=== PATIENT | male | born 2000 | race Two or more races ===

== ENCOUNTER 2018-05-20 10:46 | Emergency (ER) | payer BC ==
[~2018-05-20] VITALS: Ht 177.8 cm; Wt 74.8 kg
[2018-05-20] MEDS ORDERED: DIPHTH,PERTUSS(ACELL),TET TOX 0.5 ML DISP.SYRIN. VAX IM ONE (11:00)
[2018-05-20] MEDS ORDERED: LIDOCAINE 1% PF 30 ML VIAL. INJ ONE (11:00)
[2018-05-20 12:08] VITALS: BP 143/66
--- NOTE | 2018-05-20 12:21 | PHYS DOC ---
Past Medical History Past Medical History: No Pertinent History Alcohol Use: None Drug Use: Marijuana Adult General Chief Complaint Chief Complaint: LACERATION/AVULSION HPI HPI Patient is a 18 year old male who presents with forehead laceration, patient states he was working on a drill above his head when the drill fell and hit him on the forehead. Patient denies any loss of consciousness. Review of Systems Review of Systems Constitutional: Denies fever or chills [] Eyes: Denies change in visual acuity, redness, or eye pain [] HENT: Denies nasal congestion or sore throat [] Respiratory: Denies cough or shortness of breath [] Cardiovascular: No additional information not addressed in HPI [] GI: Denies abdominal pain, nausea, vomiting, bloody stools or diarrhea [] : Denies dysuria or hematuria [] Musculoskeletal: Denies back pain or joint pain [] Integument: forehead laceration Neurologic: Denies headache, focal weakness or sensory changes [] All other systems were reviewed and found to be within normal limits, except as documented in this note. Current Medications Current Medications Current Medications Medications (Trade) Dose Ordered Sig/Tio Start Time Stop Time Status Last Admin Dose Admin Diphtheria/ Tetanus/Acell Pertussis (Boostrix) 0.5 ml ONCE ONCE 05/20/18 11:00 05/20/18 11:13 DC 05/20/18 11:27 0.5 ML Lidocaine HCl (Xylocaine 1% Pf 30ml Vial) 30 ml 1X ONCE 05/20/18 11:00 05/20/18 11:13 DC 05/20/18 11:32 30 ML Allergies Allergies Allergies Coded Allergies Type Severity Reaction Last Updated Verified lentils Allergy Intermediate 05/20/18 Yes nut - unspecified Allergy Intermediate 05/20/18 Yes Physical Exam Physical Exam Constitutional: Well developed, well nourished, no acute distress, non-toxic appearance. [] HENT: Normocephalic, atraumatic, bilateral external ears normal, oropharynx moist, no oral exudates, nose normal. [] Eyes: PERRLA, EOMI, conjunctiva normal, no discharge. [] Neck: Normal range of motion, no tenderness, supple, no stridor. [] Cardiovascular:Heart rate regular rhythm, no murmur [] Lungs & Thorax: Bilateral breath sounds clear to auscultation [] Abdomen: Bowel sounds normal, soft, no tenderness, no masses, no pulsatile masses. [] Skin: Warm, dry, no erythema, forehead with a vertical laceration approximately 4 cm long. Back: No tenderness, no CVA tenderness. [] Extremities: No tenderness, no cyanosis, no clubbing, ROM intact, no edema. [] Neurologic: Alert and oriented X 3, normal motor function, normal sensory function, no focal deficits noted. Cranial nerves II through XII intact Psychologic: Affect normal, judgement normal, mood normal. [] Current Patient Data Vital Signs Vital Signs Date Time Temp Pulse Resp B/P (MAP) Pulse Ox O2 Delivery O2 Flow Rate FiO2 05/20/18 12:08 98.0 68 18 143/66 (91) 99 Room Air 98.0 EKG EKG [] Radiology/Procedures Radiology/Procedures Laceration/Wound Repair Laceration/Wound Repair : [] Wound Location: Fore head Wound's Depth, Shape: vertical Wound Length (cm): approx. 4 cm Wound Explored: clean Irrigated w/ Saline (ccs): 20 Betadine Prep?: Y Anesthesia: 1% of lidocaine Volume Anesthetic (ccs): Approximately 5 mL Wound Repaired With: Dissolvable gut/size 6 Number of Sutures: 10 interrupted sutures Progress :[][] Course & Med Decision Making Course & Med Decision Making Pertinent Labs and Imaging studies reviewed. (See chart for details) Patient has forehead laceration that was closed with 10 interrupted sutures as noted in procedures. Wound care instructions and return precautions provided. Tetanus updated. Staff Physician Addendum: I was working in the ER during the course of this patient's visit. I was available for consultation as needed, but I was not directly involved in the care of this patient. Dragon Disclaimer Dragon Disclaimer This electronic medical record was generated, in whole or in part, using a voice recognition dictation system. Departure Departure Impression: Primary Impression: Forehead laceration Disposition: 01 HOME, SELF-CARE Condition: STABLE Referrals: UNKNOWN PCP NAME (PCP) Follow-up with your doctor in 1-2 weeks as needed Patient Instructions: Facial Laceration, [id number] Additional Instructions: You have a laceration to your forehead that was closed with dissolvable sutures , they will disappear in the next 1-2 weeks. You can shower and wash your face. Apply Neosporin to the area twice a day. Monitor the area for any signs of infection including increased redness warmth or yellow drainage from the area and return to the ED if they occur. Follow-up with your doctor in 1-2 weeks as needed. Problem Qualifiers Primary Impression: Forehead laceration Encounter type: initial encounter Qualified Codes: S01.81XA - Laceration without foreign body of other part of head, initial encounter RUI ELENA APRN May 20, 2018 12:21 MAT WILLIS MD May 20, 2018 16:01
== END 2018-05-20 12:39 | disposition home or self-care (01) ==
LOC: ER 10:46
DX: S01.81XA Laceration without foreign body of other part of head, initial encounter (principal); F12.10 Cannabis abuse, uncomplicated; Z88.8 Allergy status to other drugs, medicaments and biological substances; Z91.018 Allergy to other foods; W20.8XXA Other cause of strike by thrown, projected or falling object, initial encounter; Y93.89 Activity, other specified; Y92.89 Other specified places as the place of occurrence of the external cause; Y99.8 Other external cause status
CPT/HCPCS: 12013; 90471; 90715; 99283